=== PATIENT | female | born 1970 | race Caucasian/White ===

== ENCOUNTER 2016-09-10 22:53 | Emergency (ER) | payer OTHER ==
[~2016-09-10] VITALS: Ht 160 cm; Wt 127.0 kg
[~2016-09-10 22:53] MED LIST: ARIP30TA PO; CEPH-264 PO; CIPR500T PO; CYCL10TA2 PO; DOCU-27 PO; ERYT250T14 PO; FLUC150T PO; FLUO20CA16 PO; GABA-586 PO; HYDR-2762 PO; HYDR-971 PO; INSU100C4 SQ; INSU100I13 SQ; INSU100I17 SQ; INSU100V13 SQ; METO10TA PO; METO10TA81 PO; METR500T PO; NAPR250T2 PO; NAPR375T3 PO; NAPR500T PO; ONDA4TAB12 PO; OXYC-323 PO; OXYC1TAB7 PO; RANI150T6 PO; TAMS0.4C97 PO; TRAM50TA PO
--- NOTE | 2016-09-10 23:14 | PHYS DOC ---
Past Medical History Past Medical History: Depression, Diabetes-Type II, Kidney Stone Additional Past Medical Histor: obesity Past Surgical History: Cholecystectomy Additional Past Surgical Histo: kidney stones, right knee Alcohol Use: None Drug Use: None Adult General Chief Complaint Chief Complaint: FLANK PAIN HPI HPI Patient is a 46 year old female with a history significant for hypertension diabetes diverticulitis gastroparesis and a history of kidney stones in the past has required laser therapy presents here today complaining of right flank pain radiating to her right groin. Patient reports that she was here in the ED approximately 2 hours ago with her who is being treated for COPD exacerbation. While she was here she reports that she started experiencing some pain in her right flank. Patient went home took a bath and the pain started getting worse. Patient denies any fevers shakes chills vomiting or diarrhea. Patient reports she is nauseous with dysuria frequency and urgency. Patient does not advocate any hematuria. Patient has any chest pain or shortness of breath. Patient denies any weakness to her upper or lower extremities. Patient has any shortness of breath or cough. Patient denies any history of CAD, CHF, COPD, asthma,. Patient reports she's had her gallbladder taken out. Patient has not had her appendix taken out. Patient does not smoke drink or do drugs. Allergic to any medications. Patient's physical exam the ER is significant for tenderness to palpation her right flank and right lower quadrant. Patient has no rebound or guarding. Patient has normal active bowel sounds. Patient is morbidly obese. Patient is neurologically intact. Patient's and bleeding the ED without any difficulty. Patient is not exhibiting any signs or symptoms of be consistent with an acute surgical abdomen. ER course: Patient received IV fluids, Dilaudid, Zofran, and Toradol in the ED to assist with her discomfort. Patient's presentation appears to be consistent with a likely kidney stone however there still possibility that there may be an appendicitis. We will get a CT scan of the abdomen and pelvis to further sedate the cause of her pain. A UA is sent. patient will have baseline labs sent as well. Patient's CT scan of her urinary tract revealed no evidence of kidney stones, appendicitis, no acute pathology. patient's labs were all unremarkable except for a ua which revealed 20-40 wbcs and some rbc's in there as well. patient's symptoms may likely be secondary to a urinary tract infection. we will go ahead and start her on a dose of iv rocephin in the er and she'll be sent home with keflex, percocet, motrin to assist her with her pain. patient otherwise clinically and hemodynamically stable. i discussed the plan with the patient and her and they're in agreement with the current course of action. They will follow up with her primary care physician within the next 1-2 days for reevaluation. Review of Systems Review of Systems Constitutional: Denies fever or chills [] Eyes: Denies change in visual acuity, redness, or eye pain [] All other review systems are negative except as documented in the history of present illness. Current Medications Current Medications Current Medications Medications (Trade) Dose Ordered Sig/Олег Start Time Stop Time Status Last Admin Dose Admin Ceftriaxone Sodium (Rocephin 1gm Ivpb For Omni) 50 ml @ 100 mls/hr 1X ONCE 09/11/16 00:00 09/11/16 00:29 Hydromorphone HCl (Dilaudid) 1 mg 1X ONCE 09/10/16 23:30 09/10/16 23:31 DC 09/10/16 23:30 1 MG Ketorolac Tromethamine 15 mg 15 mg 1X ONCE 09/10/16 23:30 09/10/16 23:31 DC 09/10/16 23:30 15 MG Ondansetron HCl (Zofran) 4 mg 1X ONCE 09/10/16 23:30 09/10/16 23:31 DC 09/10/16 23:30 4 MG Sodium Chloride (Iv Sodium Chloride 0.9% 1000ml Bag) 1,000 ml @ 1,000 mls/hr Q1H 09/10/16 23:30 09/11/16 00:29 09/10/16 23:30 1,000 MLS/HR Allergies Allergies Allergies Coded Allergies Type Severity Reaction Last Updated Verified No Known Drug Allergies 03/25/15 No Physical Exam Physical Exam Constitutional: Well developed, well nourished, no acute distress, non-toxic appearance. [] HENT: Normocephalic, atraumatic, Eyes: , EOMI, conjunctiva normal, no discharge. [] Neck: Normal range of motion, no tenderness, Cardiovascular:Heart rate regular rhythm, Lungs & Thorax: Bilateral breath sounds clear to auscultation [] Abdomen: See above Skin: Warm, dry, no erythema, Back: Tenderness to palpation to right flank. See above Extremities: No tenderness, Neurologic: Alert and oriented X 3, Psychologic: Affect normal, judgement normal, mood normal. [] Current Patient Data Vital Signs Vital Signs Date Time Temp Pulse Resp B/P Pulse Ox O2 Delivery O2 Flow Rate FiO2 09/10/16 23:09 99.0 110 22 168/108 96 Room Air 99.0 Lab Values Laboratory Tests Test 09/10/16 22:20 09/10/16 23:00 09/10/16 23:20 POC Urine HCG, Qualitative Hcg negative (Negative) Urine Collection Type Unknown Urine Color Yellow Urine Clarity Clear Urine pH 5.5 Urine Specific [place] >=1.030 Urine Protein Negativemg/dL (NEG-TRACE) Urine Glucose (UA) >=1000mg/dL (NEG) Urine Ketones (Stick) Negativemg/dL (NEG) Urine Blood Large (NEG) Urine Nitrite Negative (NEG) Urine Bilirubin Negative (NEG) Urine Urobilinogen Dipstick 0.2mg/dL (0.2 mg/dL) Urine Leukocyte Esterase Small (NEG) Urine RBC 20-40/HPF (0-2) Urine WBC >40/HPF (0-4) Urine Squamous Epithelial Cells Mod/LPF Urine Bacteria Moderate/HPF (0-FEW) Urine Mucus Mod/LPF White Blood Count 13.3x10^3/uL (4.0-11.0) H Red Blood Count 5.01x10^6/uL (3.50-5.40) Hemoglobin 14.5g/dL (12.0-15.5) Hematocrit 43.7% (36.0-47.0) Mean Corpuscular Volume 87fL (79-100) Mean Corpuscular Hemoglobin 29pg (25-35) Mean Corpuscular Hemoglobin Concent 33g/dL (31-37) Red Cell Distribution Width 13.5% (11.5-14.5) Platelet Count 310x10^3/uL (140-400) Neutrophils (%) (Auto) 59% (31-73) Lymphocytes (%) (Auto) 31% (24-48) Monocytes (%) (Auto) 5% (0-9) Eosinophils (%) (Auto) 3% (0-3) Basophils (%) (Auto) 1% (0-3) Neutrophils # (Auto) 7.9x10^3uL (1.8-7.7) H Lymphocytes # (Auto) 4.1x10^3/uL (1.0-4.8) Monocytes # (Auto) 0.7x10^3/uL (0.0-1.1) Eosinophils # (Auto) 0.4x10^3/uL (0.0-0.7) Basophils # (Auto) 0.1x10^3/uL (0.0-0.2) Laboratory Tests 09/10/16 23:20 EKG EKG [] Radiology/Procedures Radiology/Procedures [] Course & Med Decision Making Course & Med Decision Making Pertinent Labs and Imaging studies reviewed. (See chart for details) [] Dragon Disclaimer Dragon Disclaimer This electronic medical record was generated, in whole or in part, using a voice recognition dictation system. Departure Departure Impression: Primary Impression: Abdominal pain Additional Impressions: Flank pain Urinary tract infection Disposition: 01 HOME, SELF-CARE Condition: IMPROVED Referrals: JENSEN ETIENNE MD (PCP) Patient Instructions: Flank Pain, Urinary Tract Infection Scripts Oxycodone/Apap 5-325 (Percocet 5-325 Mg Tablet)1 Each Tablet1 Tab PO Q6-8HRS PRN PAIN #20 TAB Prov:JESSICA HUTTON MD 09/10/16 Cephalexin (Keflex)500 Mg [id number] Mg PO QID 10 Days Prov:JESSICA HUTTON MD 09/10/16 Ibuprofen 600 Mg [id number] Mg PO PRN Q6HRS PRN PAIN #20 TAB Prov:JESSICA HUTTON MD 09/10/16 Problem Qualifiers JESSICA HUTTON MD Sep 10, 2016 23:14
[2016-09-10 23:25] LABS: BILIRUBIN,URINE NEGATIVE (NEG); GLUCOSE,URINE >=1000 mg/dL (NEG); NITRITE,URINE NEGATIVE (NEG); PH,URINE 5.5; PROTEIN,URINE NEGATIVE (NEG-TRACE); UROBILINOGEN,URINE 0.2 mg/dL (0.2 mg/dL)
[2016-09-10 23:26] LABS: BASO # 0.1 x10^3/uL (0.0-0.2); BASO % 1 % (0-3); EOS % 3 % (0-3); HEMATOCRIT 43.7 % (36.0-47.0); HEMOGLOBIN 14.5 g/dL (12.0-15.5); LYMPH # 4.1 x10^3/uL (1.0-4.8); LYMPH % 31 % (24-48); MEAN CORPUSCULAR HEMOGLOBIN 29 pg (25-35); MEAN CORPUSCULAR HGB CONC 33 g/dL (31-37); MEAN CORPUSCULAR VOLUME 87 fL (79-100); MONO % 5 % (0-9); NEUT % 59 % (31-73); PLATELET COUNT 310 x10^3/uL (140-400); RED BLOOD COUNT 5.01 x10^6/uL (3.50-5.40); RED CELL DISTRIBUTION WIDTH 13.5 % (11.5-14.5); WHITE BLOOD COUNT 13.3 x10^3/uL (4.0-11.0)
[2016-09-10] MEDS ORDERED: KETOROLAC 15 MG/ML VIAL. IV ONE (23:30)
[2016-09-10] MEDS ORDERED: HYDROMORPHONE 2 MG/ML VIAL. IV ONE (23:30)
[2016-09-10] MEDS ORDERED: IV NORMAL SALINE 1000ML BAG 1,000 ML IV SCH (23:30)
[2016-09-10] MEDS ORDERED: ONDANSETRON PF 4 MG/2 ML VIAL. IV ONE (23:30)
[2016-09-10 23:33] LABS: BACTERIA,URINE MODERATE /HPF (0-FEW); RBC,URINE 20-40 /HPF (0-2); SQUAMOUS EPITHELIAL CELL,UR MOD /LPF; WBC,URINE >40 /HPF (0-4)
--- NOTE | 2016-09-10 23:43 | RAD ---
CT abdomen and pelvis without contrast Indication: Right flank pain. Axial imaging through the abdomen and pelvis was performed without contrast. Comparison is made with prior CT from 01/11/2016. The lung bases are clear. The liver is unremarkable. No discrete liver mass is detected. The gallbladder is surgically absent. The pancreas and spleen are unremarkable. No adrenal mass is identified. The kidneys are unremarkable. No calculi are detected. No hydronephrosis is seen. Overall quality of the study is significantly compromised due to patient very large body habitus. This does produce a large amount of artifact. The uterus and bladder are unremarkable. No free fluid is seen. Appendix is unremarkable. There is no bowel obstruction or free air. Impression: Limited study due to patient's large body habitus. No acute feature is detected. Electronically signed by: Ahmet Morgan MD (Sep 10, 2016 23:40:59)
[2016-09-10] MEDS ORDERED: CEPH-264 PO (23:56)
[2016-09-10] MEDS ORDERED: IBUP-1007 PO (23:56)
[2016-09-10] MEDS ORDERED: OXYC-323 PO (23:56)
[2016-09-11] MEDS ORDERED: CEFTRIAXONE 1GM IVPB FOR OMNI 50 ML IV ONE
[2016-09-11 00:12] LABS: ALBUMIN 3.1 g/dL (3.4-5.0); ALBUMIN/GLOBULIN RATIO 0.7 (1.0-1.7); CREATININE 0.6 mg/dL (0.6-1.0); GFR 108.1; TOTAL BILIRUBIN 0.8 mg/dL (0.2-1.0); TOTAL PROTEIN 7.7 g/dL (6.4-8.2)
[2016-09-11] MEDS ORDERED: HYDROMORPHONE 2 MG/ML VIAL. IV ONE (00:30)
[2016-09-11 00:35] VITALS: BP 108/59
[2016-09-11 00:46] LABS: POTASSIUM 3.5 mmol/L (3.5-5.1)
[2016-09-11] MEDS ORDERED: METO10TA81 PO (16:27)
== END 2016-09-11 00:40 | disposition home or self-care (01) ==
LOC: ER 22:53
DX: N39.0 Urinary tract infection, site not specified (principal); I10 Essential (primary) hypertension; E11.9 Type 2 diabetes mellitus without complications; F32.9 Major depressive disorder, single episode, unspecified; E66.01 Morbid (severe) obesity due to excess calories; Z87.442 Personal history of urinary calculi; Z90.49 Acquired absence of other specified parts of digestive tract; Z68.42 Body mass index [BMI] 45.0-49.9, adult
CPT/HCPCS: 36415; 74176; 80053; 81001; 81025; 85027; 87086; 96365; 96375; 96376; 99285; J0690; J1170; J1885; J2405; J7030

== ENCOUNTER 2016-09-11 14:01 | Emergency (ER) | payer OTHER ==
[~2016-09-11] VITALS: Ht 160 cm; Wt 127.0 kg
[~2016-09-11 14:01] MED LIST changes: +IBUP-1007 PO
[2016-09-11 15:09] LABS: BASO # 0.1 x10^3/uL (0.0-0.2); BASO % 1 % (0-3); BILIRUBIN,URINE NEGATIVE (NEG); EOS % 4 % (0-3); GLUCOSE,URINE >=1000 mg/dL (NEG); HEMATOCRIT 42.4 % (36.0-47.0); LYMPH # 3.1 x10^3/uL (1.0-4.8); LYMPH % 30 % (24-48); MEAN CORPUSCULAR HEMOGLOBIN 29 pg (25-35); MEAN CORPUSCULAR HGB CONC 33 g/dL (31-37); MEAN CORPUSCULAR VOLUME 87 fL (79-100); MONO % 6 % (0-9); NEUT % 60 % (31-73); NITRITE,URINE NEGATIVE (NEG); PLATELET COUNT 298 x10^3/uL (140-400); PROTEIN,URINE NEGATIVE (NEG-TRACE); RED BLOOD COUNT 4.87 x10^6/uL (3.50-5.40); RED CELL DISTRIBUTION WIDTH 13.7 % (11.5-14.5); UROBILINOGEN,URINE 0.2 mg/dL (0.2 mg/dL); WHITE BLOOD COUNT 10.4 x10^3/uL (4.0-11.0)
[2016-09-11 15:14] LABS: BARBITURATES NEG (NEG); BENZODIAZEPINES NEG (NEG); CALCIUM 8.8 mg/dL (8.5-10.1); CANNABINOIDS NEG (NEG); COCAINE NEG (NEG); CREATININE 1.1 mg/dL (0.6-1.0); GFR 53.7; METHADONE NEG (NEG); OPIATES POS (NEG); PHENCYCLIDINE NEG (NEG); POTASSIUM 4.6 mmol/L (3.5-5.1)
[2016-09-11] MEDS ORDERED: IV NORMAL SALINE 1000ML BAG 1,000 ML IV SCH (15:15)
[2016-09-11] MEDS ORDERED: KETOROLAC TROMETHAMINE 30 MG/ML INJ. IV ONE (15:15)
[2016-09-11] MEDS ORDERED: HALOPERIDOL LACTATE 5 MG/ML VIAL. IVP ONE (15:15)
[2016-09-11 15:19] LABS: BACTERIA,URINE 0 /HPF (0-FEW); ETHANOL, URINE NEG (NEG); RBC,URINE TNTC /HPF (0-2); SQUAMOUS EPITHELIAL CELL,UR FEW /LPF
[2016-09-11 15:21] LABS: ALBUMIN/GLOBULIN RATIO 0.7 (1.0-1.7); TOTAL BILIRUBIN 0.5 mg/dL (0.2-1.0); TOTAL PROTEIN 7.2 g/dL (6.4-8.2)
[2016-09-11 16:02] VITALS: BP 116/65
[2016-09-11] MEDS ORDERED: DICYCLOMINE HCL 10 MG CAPSULE PO ONE (16:15)
[2016-09-11] MEDS ORDERED: METO10TA81 PO (16:27)
--- NOTE | 2016-09-11 16:39 | ED.ADGEN ---
Past Medical History Past Medical History: Depression, Diabetes-Type II, Diverticulitis, Kidney Stone Additional Past Medical Histor: obesity, GASTROPARESIS Past Surgical History: Cholecystectomy Additional Past Surgical Histo: kidney stones, right knee Alcohol Use: None Drug Use: None Adult General Chief Complaint Chief Complaint: FLANK PAIN HPI HPI Patient is a 46 year old woman, history of type 2 diabetes mellitus with gastroparesis, diverticulosis, obesity, renal calculi, who presents to the emergency department with complaint of persistent right-sided flank pain and hematuria. Patient was seen in the emergency department last night for these complaints, at that time she received a CT of the abdomen and pelvis, laboratory studies, which did not reveal any evidence of renal calculi or systemic infection, patient was given antibiotics and pain medication, and instructed to follow-up. Patient states that she has had 2 episodes of vomiting , one yesterday and one today, when she did try to eat. She states that she has not tried taking medication as she feels nauseous. She states that she believes that the symptoms she is experiencing are consistent with her gastroparesis. She states that she was evaluated previously and told that "I might need a tube ", last time that she was seen by her GI doctor. She cannot recall the name for GI physician. She denies any injuries, any fevers or chills, any weakness emesis or tingling, any chest pain or shortness of breath. Review of Systems Review of Systems Constitutional: Denies fever or chills. [] Eyes: Denies change in visual acuity. [] HENT: Denies nasal congestion or sore throat. [] Respiratory: Denies cough or shortness of breath. [] Cardiovascular: Denies chest pain or edema. [] GI: Abdominal and flank pain, throughout the right side, nausea and vomiting. No diarrhea. : Denies dysuria. [] Musculoskeletal: Denies back pain or joint pain. [] Integument: Denies rash. [] Neurologic: Denies headache, focal weakness or sensory changes. [] Endocrine: Denies polyuria or polydipsia. [] Lymphatic: Denies swollen glands. [] Psychiatric: Denies depression or anxiety. [] Current Medications Current Medications Current Medications Medications (Trade) Dose Ordered Sig/Олег Start Time Stop Time Status Last Admin Dose Admin Dicyclomine HCl (Bentyl) 10 mg 1X ONCE 09/11/16 16:15 09/11/16 16:16 DC 09/11/16 16:15 10 MG Haloperidol Lactate (Haldol) 5 mg 1X ONCE 09/11/16 15:15 09/11/16 15:16 DC 09/11/16 15:29 5 MG Ketorolac Tromethamine (Toradol) 10 mg 1X ONCE 09/11/16 15:15 09/11/16 15:16 DC 09/11/16 15:28 10 MG Sodium Chloride (Iv Sodium Chloride 0.9% 1000ml Bag) 1,000 ml @ 1,000 mls/hr Q1H 09/11/16 15:15 09/11/16 16:14 DC 09/11/16 15:29 1,000 MLS/HR Allergies Allergies Allergies Coded Allergies Type Severity Reaction Last Updated Verified No Known Drug Allergies 03/25/15 No Physical Exam Physical Exam Constitutional: Well developed, well nourished, no acute distress, non-toxic appearance. [] HENT: Normocephalic, atraumatic, bilateral external ears normal, oropharynx moist, no oral exudates, nose normal. [] Eyes: PERRLA, EOMI, conjunctiva normal, no discharge. [] Neck: Normal range of motion, no tenderness, supple, no stridor. [] Cardiovascular:Heart rate regular rhythm, no murmur [] Lungs & Thorax: Bilateral breath sounds clear to auscultation [] Abdomen: Bowel sounds normal, soft, no tenderness, no masses, no pulsatile masses. [] Skin: Warm, dry, no erythema, no rash. [] Back: No tenderness, no CVA tenderness. [] Extremities: No tenderness, no cyanosis, no clubbing, ROM intact, no edema. [] Neurologic: Alert and oriented X 3, normal motor function, normal sensory function, no focal deficits noted. [] Psychologic: Affect normal, judgement normal, mood normal. [] Current Patient Data Vital Signs Vital Signs Date Time Temp Pulse Resp B/P Pulse Ox O2 Delivery O2 Flow Rate FiO2 09/11/16 16:02 75 21 116/65 95 Room Air 09/11/16 15:00 98.2 98.2 Lab Values Laboratory Tests Test 09/11/16 14:50 White Blood Count 10.4x10^3/uL (4.0-11.0) Red Blood Count 4.87x10^6/uL (3.50-5.40) Hemoglobin 14.0g/dL (12.0-15.5) Hematocrit 42.4% (36.0-47.0) Mean Corpuscular Volume 87fL (79-100) Mean Corpuscular Hemoglobin 29pg (25-35) Mean Corpuscular Hemoglobin Concent 33g/dL (31-37) Red Cell Distribution Width 13.7% (11.5-14.5) Platelet Count 298x10^3/uL (140-400) Neutrophils (%) (Auto) 60% (31-73) Lymphocytes (%) (Auto) 30% (24-48) Monocytes (%) (Auto) 6% (0-9) Eosinophils (%) (Auto) 4% (0-3) H Basophils (%) (Auto) 1% (0-3) Neutrophils # (Auto) 6.2x10^3uL (1.8-7.7) Lymphocytes # (Auto) 3.1x10^3/uL (1.0-4.8) Monocytes # (Auto) 0.6x10^3/uL (0.0-1.1) Eosinophils # (Auto) 0.4x10^3/uL (0.0-0.7) Basophils # (Auto) 0.1x10^3/uL (0.0-0.2) Urine Collection Type Unknown Urine Color Yellow Urine Clarity Clear Urine pH 5.0 Urine Specific [place] 1.025 Urine Protein Negativemg/dL (NEG-TRACE) Urine Glucose (UA) >=1000mg/dL (NEG) Urine Ketones (Stick) Negativemg/dL (NEG) Urine Blood Large (NEG) Urine Nitrite Negative (NEG) Urine Bilirubin Negative (NEG) Urine Urobilinogen Dipstick 0.2mg/dL (0.2 mg/dL) Urine Leukocyte Esterase Negative (NEG) Urine RBC Tntc/HPF (0-2) Urine WBC 1-4/HPF (0-4) Urine Squamous Epithelial Cells Few/LPF Urine Bacteria 0/HPF (0-FEW) Sodium Level 138mmol/L (136-145) Potassium Level 4.6mmol/L (3.5-5.1) Chloride Level 101mmol/L (98-107) Carbon Dioxide Level 26mmol/L (21-32) Anion Gap 11 (6-14) Blood Urea Nitrogen 13mg/dL (7-20) Creatinine 1.1mg/dL (0.6-1.0) H Estimated GFR (Cockcroft-Gault) 53.7 BUN/Creatinine Ratio 12 (6-20) Glucose Level 348mg/dL (70-99) H Calcium Level 8.8mg/dL (8.5-10.1) Total Bilirubin 0.5mg/dL (0.2-1.0) Aspartate Amino Transferase (AST) 39U/L (15-37) H Alanine Aminotransferase (ALT) 44U/L (14-59) Alkaline Phosphatase 92U/L (46-116) Total Protein 7.2g/dL (6.4-8.2) Albumin 3.0g/dL (3.4-5.0) L Albumin/Globulin Ratio 0.7 (1.0-1.7) L Lipase 106U/L (73-393) Urine Opiates Screen Pos (NEG) Urine Methadone Screen Neg (NEG) Urine Barbiturates Neg (NEG) Urine Phencyclidine Screen Neg (NEG) Urine Amphetamine/Methamphetamine Neg (NEG) Urine Benzodiazepines Screen Neg (NEG) Urine Cocaine Screen Neg (NEG) Urine Cannabinoids Screen Neg (NEG) Urine Ethyl Alcohol Neg (NEG) Laboratory Tests 09/11/16 14:50 Laboratory Tests 09/11/16 14:50 Radiology/Procedures Radiology/Procedures Acute abdominal series: 3 view: Normal cardiopulmonary silhouette, supple and story effort, but no infiltrates or effusion identified, no pneumothorax, no free air. Patient with stool and bowel gas throughout. No evidence of obstruction. As interpreted by me. Course & Med Decision Making Course & Med Decision Making Pertinent Labs and Imaging studies reviewed. (See chart for details) Patient received IV fluids, Haldol, and and Toradol for her complaint of possible gastroparesis. No further vomiting in the emergency department. Patient 's last episode of emesis was this morning. Laboratory studies were performed. No concerning findings were identified aside from hyperglycemia of 348, no evidence of acidosis. Patient's obstruction series not reveal any acutely concerning findings. I did discuss with the patient, she states that she is still experiencing pain, and would like to know the cause. I discussed with her that there was no evidence of stone or other concerning finding her CT performed less than 24 hours ago, and her imaging today does not reveal anything concerning, in order for laboratory studies. She has had no vomiting in the ED. She stated that she was willing to try oral fluids, and oral medication. She was given Bentyl by mouth, along with fluids orally, which she tolerated without issue. I did speak with her primary care provider, Dr. Corrales, although patient is continuing to complain of pain, she has been evaluated for similar symptoms previously, and I have not identified any acutely concerning findings today in the emergency department. As patient is tolerating oral medications and fluids, I believe that she is stable to follow-up as an outpatient with GI for additional evaluation. Dr. Corrales concurs with this plan. I did discuss this with the patient, who stated "if you're not going to do anything for me then I would just like to go". I discussed with the patient and her at bedside that she had been evaluated with several imaging modalities, laboratory studies, and we had not identified a concerning cause for her symptoms, and that follow-up with a GI physician would be appropriate. Patient instructed to follow-up with Dr. Corrales tomorrow, for referral to GI, she was given a prescription of Reglan, to use with her other medications, and clear and detailed return instructions. Patient discharged home in stable condition with plan as above. Dragon Disclaimer Dragon Disclaimer This electronic medical record was generated, in whole or in part, using a voice recognition dictation system. Departure Impression: Primary Impression: Flank pain Additional Impression: Abdominal pain Disposition: 01 HOME, SELF-CARE Condition: IMPROVED Scripts Metoclopramide Hcl (Reglan)10 Mg Tablet1 Tab PO QID PRN NAUSEA #12 TAB Please take one tablet by mouth up to once every 6-8 hours as needed for nausea. Prov:HUSSAIN SIMPSON DO 09/11/16 Problem Qualifiers HUSSAIN SIMPSON DO Sep 11, 2016 16:39
--- NOTE | 2016-09-11 17:16 | RAD ---
ACUTE ABDOMEN SERIES Clinical Indication: Abd pain Comparison: June 30, 2015 Technique: Frontal view of the chest and upright and supine views of the abdomen are obtained. Findings: No focal consolidation, pleural effusion or pneumothorax is seen. Cardiomediastinal silhouette is within normal limits of size. No dilated bowel loops are seen to suggest obstruction. No free air seen on the upright view. Formed fecal material seen throughout the colon. Post cholecystectomy clips in the right upper quadrant. Visualized osseous structures and surrounding soft tissues demonstrate no acute finding. IMPRESSION: No radiographic evidence of an acute cardio pulmonary process. Nonobstructive appearing bowel gas pattern.
--- NOTE | 2016-09-11 17:26 | EKG ---
[facility] [address] [place] [address] Test Date: 2016-09-11 Test Time: 15:37:26 Pat Name: GARRY ONEAL Department: Room: Gender: Female Program Analyst: : 1970 Requested By: HUSSAIN SIMPSON Order Number: [id number] Reading MD: Mariya Purcell Measurements Intervals [place] Rate: 75 P: 46 UT: 164 QRS: 12 QRSD: 76 T: 34 QT: 364 QTc: 409 Interpretive Statements SINUS RHYTHM NORMAL ECG Electronically Signed On 09-14-2016 10:07:45 CDT by Mariya Purcell
== END 2016-09-11 16:47 | disposition home or self-care (01) ==
LOC: ER 14:01
DX: R10.9 Unspecified abdominal pain (principal); R31.9 Hematuria, unspecified; R11.10 Vomiting, unspecified; E11.43 Type 2 diabetes mellitus with diabetic autonomic (poly)neuropathy; E66.9 Obesity, unspecified; F32.9 Major depressive disorder, single episode, unspecified; Z87.442 Personal history of urinary calculi; Z90.49 Acquired absence of other specified parts of digestive tract; Z68.42 Body mass index [BMI] 45.0-49.9, adult
CPT/HCPCS: 36415; 74022; 80053; 80305; 81001; 83690; 85027; 93005; 96361; 96374; 96375; 99285; J1630; J1885; J7030; G0481

== ENCOUNTER → 2016-09-30 | Outpatient (CLI) | payer OTHER, BC ==
[2016-09-11 16:02] VITALS: BP 116/65
--- NOTE | 2016-09-30 15:42 | RAD ---
DATE: 09/30/2016 EXAM: DIGITAL SCREEN BILAT W/CAD HISTORY: Screening. Note is made of a positive family history for breast malignancy COMPARISON: None. This is a baseline exam This study was interpreted with the benefit of Computerized Aided Detection (CAD ). FINDINGS: Breast Density: The breast parenchyma is primarily fatty replaced. Breast parenchyma level density A.. The right breast is unremarkable. There are tiny nodules probably reflecting intramammary lymph nodes in the upper outer right breast. There is a benign- appearing calcification in the right breast. In the left breast there is a well- defined oval 12 mm nodule at approximately the 4:00 position of the left breast. There are 2 tiny well-defined nodules immediately adjacent to the larger nodule. A benign-appearing coaxial or or retention cyst is additionally noted at the 12:00 position of the left breast. IMPRESSION: Well-defined 12 mm nodule in the left breast with 2 smaller nodules immediately adjacent to same. Targeted ultrasound advised. BI-RADS CATEGORY: 0 INCOMPLETE: NEED ADDITIONAL IMAGING EVAULATION AND/OR PRIOR MAMMOGRAMS FOR COMPARISON RECOMMENDED FOLLOW-UP: ADD ADDITIONAL IMAGING PQRS compliance statement: Patient information was entered into a reminder system with a target due date soon for the next mammogram. Mammography is a sensitive method for finding small breast cancers, but it does not detect them all and is not a substitute for careful clinical examination. A negative mammogram does not negate a clinically suspicious finding and should not result in delay in biopsying a clinically suspicious abnormality. "Our facility is accredited by the [employer] Mammography Program." CHENGD
== END | disposition home or self-care (01) ==
LOC: MAMMO 14:03
PROVIDERS: ATTEND Family Medicine
DX: Z12.31 Encounter for screening mammogram for malignant neoplasm of breast (principal)
CPT/HCPCS: G0202; 77067

== ENCOUNTER → 2016-10-05 | Outpatient (CLI) | payer OTHER, BC ==
[2016-09-11 16:02] VITALS: BP 116/65
--- NOTE | 2016-10-05 15:31 | RAD ---
Exam performed: Left breast ultrasound. History: Abnormal screening mammogram. Date of service: 10/05/16. Comparison: Bilateral screening mammogram from 09/30/16. Discussion: Targeted sonographic evaluation of the left breast is performed between 11 and 12:00 position and between 2 and 6:00 position. There is a well-defined cyst measuring 0.9 x 1.1 cm 11:00 position, 8 cm from the nipple demonstrating good through transmission. This corresponds to a partially calcified abnormality deep in the right breast at 12:00 position. There is a solid isoechoic round mass measuring 1.3 x 1.2 x 1.0 cm at 5:00 position, 7 cm from the nipple. No internal vascularity is identified. There are several fibrocystic changes superficially at 12:00 position with several isolated dilated ducts. Impression: Solid iso to hypoechoic round mass measuring 1.3 x 1.2 x 1.0 cm 5:00 position, 7 cm of the nipple. This is suspicious. Patient has a strong family history of breast cancer and an ultrasound-guided right breast biopsy is recommended. Detail with the patient. Dr. Elida Corrales's office was called and a message was left on her voicemail. Benign cyst at 11:00 position. BI-RADS Category 4: suspicious. Mammography is the most sensitive method for finding small breast cancers, but it does not detect them all and is not a substitute for careful clinical examination. A negative mammogram does not negate a clinically suspicious finding and should not result in delay in biopsying a clinically suspicious abnormality. "Our facility is accredited by the [employer] Mammography Program."
== END | disposition home or self-care (01) ==
LOC: US 14:34
PROVIDERS: ATTEND Family Medicine
DX: R92.8 Other abnormal and inconclusive findings on diagnostic imaging of breast (principal)
CPT/HCPCS: 76641

== ENCOUNTER → 2016-10-13 | Outpatient (CLI) | payer BC, OTHER ==
[~2016-10-13] VITALS: Ht 157.5 cm; Wt 127.0 kg
[~2016-10-13] MED LIST changes: +BUPR1PAT2 TP; +CLON1TAB PO; +LIDOCAINE 1%/EPI 1:100,000 20 ML VIAL. INJ ONE; +LISI10TA2 PO; +MELO-150 PO
[2016-10-13 09:58] VITALS: BP 109/67
--- NOTE | 2016-10-17 08:49 | PATHOLOGY ---
PATHOLOGY REPORT * * * * * * * * FINAL DIAGNOSIS: Breast mass, left, core needle biopsy: - Fibroadenoma. - Cystic apocrine metaplasia, focal. (Please see comment) COMMENT: This case has also been reviewed by Miguel Monreal M.D., who agrees with the diagnosis. REPORT ELECTRONICALLY SIGNED BY: Domingo Nolasco M.D. DATE/TIME: 10/17/2016 08:48 * * * * * * * * GROSS PATHOLOGY: Received in formalin labeled "Garry Oneal," and additionally labeled on the requisition as "left breast mass," are multiple needle cores of yellow-bedoya fibrofatty tissue measuring 2.3 x 1.6 x 0.3 cm in aggregate dimensions. The tissue is submitted in its entirety in cassette A1. The cold ischemic time is 5 minutes. The total formalin fixation time is 10 hours and 51 minutes. (KAH; 10/13/2016) INITIAL CPT CODE(S): A; 02884 Professional services performed by [employer], [facility] [place] [address]. Technical services performed by [employer], [address] [place] [address], [address] [address]. SPECIMEN(S) RECEIVED: A.Left breast mass CLINICAL HISTORY: Left breast mass PATIENT: GARRY ONEAL /AGE: 4 1970 (Age: 46) PATIENT #: [id number] ALT CASE #: SPECIMEN COLLECTION DATE: 10/13/2016 SPECIMEN RECEIVED DATE: 10/13/2016 [employer] - [facility] [place] [address] - PHONE: [phone] * * * END OF REPORT * * *
--- NOTE | 2016-10-17 14:04 | RAD ---
Ultrasound-guided vacuum-assisted left breast biopsy, 10/13/2016: History: Suspicious breast nodule Previous studies demonstrated a suspicious nodule at the 5:00 location in the left breast. Under local anesthesia, aseptic conditions and sonographic guidance the [employer] biopsy instrument was passed into this nodule via a lateral approach. Multiple 12-gauge vacuum-assisted core samples were obtained. The samples were sent to pathology for evaluation. A biopsy marker was deposited at the biopsy site. The biopsy instrument was then removed and hemostasis obtained. Two-view postprocedural mammograms were then obtained to document position of the biopsy marker which lies along the inferomedial margin of the biopsied nodule. The patient tolerated the procedure well and left the department in good condition. The subsequent pathology report indicated the presence of a fibroadenoma, as well as cystic apocrine metaplasia. The findings are considered to be concordant.
== END | disposition home or self-care (01) ==
LOC: US 16:31
PROVIDERS: ATTEND Family Medicine
DX: N63 Unspecified lump in breast (principal)
CPT/HCPCS: 19081; 76942; C1713; G0206; 77065

== ENCOUNTER → 2017-11-07 | Outpatient (CLI) | payer BC | END | disposition home or self-care (01) | LOC: RAD 14:00 | DX: M17.0 Bilateral primary osteoarthritis of knee (principal) | CPT/HCPCS: 73562 ==

== ENCOUNTER 2019-02-20 07:35 | Emergency (ER) | payer SELFPAY ==
[~2019-02-20] VITALS: Ht 160 cm; Wt 127.0 kg
[~2019-02-20 07:35] MED LIST changes: -ARIP30TA PO; +ARIP30TA4 PO; -BUPR1PAT2 TP; +BUPR1PAT8 TP; +DOCU-109 PO; -DOCU-27 PO; -GABA-586 PO; +GABA300C18 PO; -HYDR-2762 PO; +HYDR-2765 PO; +HYDR-3164 PO; -HYDR-971 PO; -LIDOCAINE 1%/EPI 1:100,000 20 ML VIAL. INJ ONE; -MELO-150 PO; +MELO15TA23 PO; +NAPR-683 PO; +NAPR-695 PO; -NAPR250T2 PO; +NAPR250T6 PO; -NAPR375T3 PO; -NAPR500T PO; -OXYC-323 PO; +OXYC1TAB15 PO; +RANI-376 PO; -RANI150T6 PO
[2019-02-20] MEDS ORDERED: IV NORMAL SALINE 1000ML BAG 1,000 ML IV SCH (07:55)
--- NOTE | 2019-02-20 08:04 | PHYS DOC ---
Past Medical History Past Medical History: Depression, Diabetes-Type II, Diverticulitis, Kidney Stone Additional Past Medical Histor: obesity, GASTROPARESIS, chronic pain Past Surgical History: Cholecystectomy Additional Past Surgical Histo: kidney stones, right knee Alcohol Use: None Drug Use: None Adult General Chief Complaint Chief Complaint: FLANK PAIN HPI HPI Patient is a 48-year-old female, with a history of diabetes, gastroparesis, prior renal stones, and chronic pain, currently on 60 mg of oxycodone per day, according to her [employer] report, as well as a history of anxiety, currently on Xanax 1 mg 3 times a day, who presents to the emergency department for evaluation of right flank pain. She states the pain began about 8:00 this morning, located in her right flank area, without radiation. There are no alleviating or exacerbating factors to her symptoms. The patient states that she has been "sick her stomach" for the past several days, but has not had any vomiting or diarrhea. She denies any urinary symptoms. She denies any chest pain shortness of breath. Review of Systems Review of Systems Constitutional: Denies fever or chills [] Eyes: Denies change in visual acuity, redness, or eye pain [] HENT: Denies nasal congestion or sore throat [] Respiratory: Denies cough or shortness of breath [] Cardiovascular: The patient denies any shortness of breath, chest pain, palpitations, or orthopnea [] GI: Denies abdominal pain, vomiting, bloody stools or diarrhea [] : Denies dysuria or hematuria [] Musculoskeletal: Denies back pain or joint pain [] Integument: Denies rash or skin lesions [] Neurologic: Denies headache, focal weakness or sensory changes [] Endocrine: Denies polyuria or polydipsia [] All other systems were reviewed and found to be within normal limits, except as documented in this note. Current Medications Current Medications Current Medications Medications (Trade) Dose Ordered Sig/Олег Start Time Stop Time Status Last Admin Dose Admin Diphenhydramine HCl (Benadryl) 12.5 mg 1X ONCE 02/20/19 08:30 02/20/19 08:31 DC 02/20/19 08:35 12.5 MG Insulin Human Regular (HumuLIN R VIAL) 5 unit 1X ONCE 02/20/19 09:15 02/20/19 09:16 DC Ketorolac Tromethamine (Toradol 30mg Vial) 30 mg 1X ONCE 02/20/19 08:30 02/20/19 08:31 DC 02/20/19 08:35 30 MG Lorazepam (Ativan Inj) 1 mg 1X ONCE 02/20/19 08:30 02/20/19 08:31 DC 02/20/19 08:35 1 MG Prochlorperazine Edisylate (Compazine) 10 mg 1X ONCE 02/20/19 08:30 02/20/19 08:31 DC 02/20/19 08:35 10 MG Sodium Chloride 1,000 ml @ 1,000 mls/hr Q1H 02/20/19 07:55 02/20/19 08:54 DC 02/20/19 08:35 1,000 MLS/HR Allergies Allergies Allergies Coded Allergies Type Severity Reaction Last Updated Verified No Known Drug Allergies 03/25/15 No Physical Exam Physical Exam PHYSICAL EXAM: CONSTITUTIONAL: Well developed, well nourished HEAD: normocephalic, atraumatic EENT: PERRL, EOMI. Conjunctivae normal color, sclerae non-icteric; moist mucous membranes. NECK: Supple, non-tender; no meningismus. LUNGS: Lungs CTA, breathing even and unlabored. Normal air movement. HEART: Regular rate and rhythm, no murmur CHEST: No deformity; non-tender ABDOMEN: The abdomen is soft, and non-tender, no masses or bruits. There is moderate tenderness to palpation in the right flank/right lower costal margin area, without any skin lesions noted to the area. The abdomen itself is relatively soft and nontender. Normal bowel sounds are present. EXTREM: Normal ROM; no deformity, no calf tenderness. Normal pulses palpable in all extremities. There is no pedal edema. SKIN: No rash; no diaphoresis NEURO: Alert; normal speech and cognition; CN's grossly intact; strength grossly intact without focal deficit. BACK: No CVA TTP.There is no bony tenderness to palpation of the thoracic or lumbar spine. PSYCHIATRIC: Moderately anxious affect. Current Patient Data Vital Signs Vital Signs Date Time Temp Pulse Resp B/P (MAP) Pulse Ox O2 Delivery O2 Flow Rate FiO2 02/20/19 07:40 98.8 74 22 166/80 (108) 97 Room Air 98.8 Lab Values Laboratory Tests Test 02/20/19 07:41 02/20/19 08:27 Urine Collection Type Unknown Urine Color Yellow Urine Clarity Clear Urine pH 5.5 Urine Specific [place] >=1.030 Urine Protein Negative mg/dL (NEG-TRACE) Urine Glucose (UA) >=1000 mg/dL (NEG) Urine Ketones (Stick) Negative mg/dL (NEG) Urine Blood Moderate (NEG) Urine Nitrite Negative (NEG) Urine Bilirubin Negative (NEG) Urine Urobilinogen Dipstick 1.0 mg/dL (0.2 mg/dL) Urine Leukocyte Esterase Small (NEG) Urine RBC 6-10 /HPF (0-2) Urine WBC 20-40 /HPF (0-4) Urine Squamous Epithelial Cells Many /LPF Urine Bacteria Few /HPF (0-FEW) Urine Test Negative (NEG) White Blood Count 13.4 x10^3/uL (4.0-11.0) H Red Blood Count 4.50 x10^6/uL (3.50-5.40) Hemoglobin 12.6 g/dL (12.0-15.5) Hematocrit 37.9 % (36.0-47.0) Mean Corpuscular Volume 84 fL (79-100) Mean Corpuscular Hemoglobin 28 pg (25-35) Mean Corpuscular Hemoglobin Concent 33 g/dL (31-37) Red Cell Distribution Width 14.4 % (11.5-14.5) Platelet Count 305 x10^3/uL (140-400) Neutrophils (%) (Auto) 79 % (31-73) H Lymphocytes (%) (Auto) 14 % (24-48) L Monocytes (%) (Auto) 6 % (0-9) Eosinophils (%) (Auto) 1 % (0-3) Basophils (%) (Auto) 1 % (0-3) Neutrophils # (Auto) 10.6 x10^3/uL (1.8-7.7) H Lymphocytes # (Auto) 1.9 x10^3/uL (1.0-4.8) Monocytes # (Auto) 0.8 x10^3/uL (0.0-1.1) Eosinophils # (Auto) 0.1 x10^3/uL (0.0-0.7) Basophils # (Auto) 0.1 x10^3/uL (0.0-0.2) Sodium Level 136 mmol/L (136-145) Potassium Level 4.2 mmol/L (3.5-5.1) Chloride Level 102 mmol/L (98-107) Carbon Dioxide Level 23 mmol/L (21-32) Anion Gap 11 (6-14) Blood Urea Nitrogen 9 mg/dL (7-20) Creatinine 1.1 mg/dL (0.6-1.0) H Estimated GFR (Cockcroft-Gault) 53.2 BUN/Creatinine Ratio 8 (6-20) Glucose Level 327 mg/dL (70-99) H Calcium Level 9.8 mg/dL (8.5-10.1) Total Bilirubin 0.7 mg/dL (0.2-1.0) Aspartate Amino Transferase (AST) 35 U/L (15-37) Alanine Aminotransferase (ALT) 26 U/L (14-59) Alkaline Phosphatase 148 U/L (46-116) H Total Protein 7.7 g/dL (6.4-8.2) Albumin 2.9 g/dL (3.4-5.0) L Albumin/Globulin Ratio 0.6 (1.0-1.7) L Lipase 59 U/L (73-393) L Laboratory Tests 02/20/19 08:27 Laboratory Tests 02/20/19 08:27 EKG EKG [] Radiology/Procedures Radiology/Procedures [PROCEDURE: CT ABDOMEN PELVIS WO CONTRAST CT Abdomen and Pelvis without contrast History: Right flank pain Technique: Noncontrast CT imaging was performed of the abdomen and pelvis. Multiplanar images are reviewed. Exposure: One or more of the following individualized dose reduction techniques were utilized for this examination: 1. Automated exposure control 2. Adjustment of the mA and/or kV according to patient size 3. Use of iterative reconstruction technique. Comparison: September 10, 2016 Findings: There is some motion degradation. There is some beam attenuation by soft tissues. There is now hazy and strandy change of right perinephric fat. There is very mild right hydronephrosis. There is also some strandy change about the right ureter, ureter difficult to visualize in its entirety. There is questionable punctate calculus in the proximal right ureter as seen on coronal image 48 series 4 although not entirely certain. There is no renal calculus on either side. Mild density of the lung bases bilaterally is likely component of atelectasis. There is diffuse hepatic steatosis. Right lobe liver is enlarged about 24 cm longitudinal. There has been cholecystectomy. There is no significant adrenal nodularity. Accurate evaluation of abdominal visceral organs is limited without intravenous contrast, no obvious focal abnormality of pancreas or spleen. Accurate evaluation of bowel is limited without oral contrast, no bowel dilatation or free air. Appendix is not clearly identified if still present. There is colonic diverticulosis greatest of sigmoid colon without significant adjacent inflammatory-type change. There is small fat-containing umbilical hernia, no internal bowel. There is multilevel lumbar facet degenerative change. Impression: 1. There is strandy and hazy inflammatory type change of the right perinephric fat and about the right ureter. Right pyelonephritis is possible, consideration of sequela of mild forniceal rupture related to obstruction. There is very mild right hydronephrosis. There is questionable punctate calculus in the proximal right ureter although not entirely certain if true finding. 2. There is hepatic steatosis and hepatomegaly. 3. There is colonic diverticulosis. ] Course & Med Decision Making Course & Med Decision Making Pertinent Labs and Imaging studies reviewed. (See chart for details) [] Patient condition remains stable. I discussed test results in detail with the patient, the need for close follow-up both with her PCP and urology, and return precautions. She is much more comfortable at this time, and appears to be feeling better. She reports improved pain control with administered medications. Dragon Disclaimer Dragon Disclaimer This electronic medical record was generated, in whole or in part, using a voice recognition dictation system. Departure Departure Impression: Primary Impression: Flank pain Additional Impression: Pyelonephritis Disposition: 01 HOME, SELF-CARE Condition: STABLE Referrals: JENSEN ETIENNE MD (PCP) Patient Instructions: Pyelonephritis, Adult, Urinary Tract Infection Additional Instructions: Ibuprofen 400-600 mg every 6 hours may help improve your symptoms. Continue taking your previously prescribed pain medications. Scripts Sulfamethoxazole/Trimethoprim (BACTRIM DS TABLET) 1 Each Tablet 1 TAB PO BID, #14 TAB Prov: NAY REYNOLDS MD 02/20/19 Problem Qualifiers NAY REYNOLDS MD Feb 20, 2019 08:04
[2019-02-20 08:12] LABS: U PREG PATIENT NEGATIVE (NEG)
[2019-02-20 08:17] LABS: BILIRUBIN,URINE NEGATIVE (NEG); CLARITY,URINE CLEAR; COLOR,URINE YELLOW; NITRITE,URINE NEGATIVE (NEG); PH,URINE 5.5; PROTEIN,URINE NEGATIVE (NEG-TRACE)
[2019-02-20] MEDS ORDERED: diphenhydrAMINE 50 MG/ML VIAL IVP ONE (08:30)
[2019-02-20] MEDS ORDERED: KETOROLAC 30 MG/ML VIAL. IV ONE (08:30)
[2019-02-20] MEDS ORDERED: PROCHLORPERAZINE 10 MG/2 ML VIAL. IV ONE (08:30)
[2019-02-20 08:37] LABS: BASO # 0.1 x10^3/uL (0.0-0.2); BASO % 1 % (0-3); EOS # 0.1 x10^3/uL (0.0-0.7); EOS % 1 % (0-3); HEMATOCRIT 37.9 % (36.0-47.0); HEMOGLOBIN 12.6 g/dL (12.0-15.5); LYMPH # 1.9 x10^3/uL (1.0-4.8); LYMPH % 14 % (24-48); MEAN CORPUSCULAR HEMOGLOBIN 28 pg (25-35); MEAN CORPUSCULAR HGB CONC 33 g/dL (31-37); MEAN CORPUSCULAR VOLUME 84 fL (79-100); MONO # 0.8 x10^3/uL (0.0-1.1); MONO % 6 % (0-9); NEUT # 10.6 x10^3/uL (1.8-7.7); NEUT % 79 % (31-73); PLATELET COUNT 305 x10^3/uL (140-400); RED CELL DISTRIBUTION WIDTH 14.4 % (11.5-14.5); WHITE BLOOD COUNT 13.4 x10^3/uL (4.0-11.0)
[2019-02-20 08:38] LABS: BACTERIA,URINE FEW /HPF (0-FEW); SQUAMOUS EPITHELIAL CELL,UR MANY /LPF; WBC,URINE 20-40 /HPF (0-4)
[2019-02-20 08:46] LABS: CALCIUM 9.8 mg/dL (8.5-10.1); CREATININE 1.1 mg/dL (0.6-1.0); GFR 53.2; POTASSIUM 4.2 mmol/L (3.5-5.1)
[2019-02-20 08:53] LABS: ALBUMIN 2.9 g/dL (3.4-5.0); ALBUMIN/GLOBULIN RATIO 0.6 (1.0-1.7); TOTAL BILIRUBIN 0.7 mg/dL (0.2-1.0); TOTAL PROTEIN 7.7 g/dL (6.4-8.2)
[2019-02-20] MEDS ORDERED: INSULIN REGULAR 100 UNIT/ML 3ML VIAL. IV ONE (09:15)
--- NOTE | 2019-02-20 09:40 | RAD ---
CT Abdomen and Pelvis without contrast History: Right flank pain Technique: Noncontrast CT imaging was performed of the abdomen and pelvis. Multiplanar images are reviewed. Exposure: One or more of the following individualized dose reduction techniques were utilized for this examination: 1. Automated exposure control 2. Adjustment of the mA and/or kV according to patient size 3. Use of iterative reconstruction technique. Comparison: September 10, 2016 Findings: There is some motion degradation. There is some beam attenuation by soft tissues. There is now hazy and strandy change of right perinephric fat. There is very mild right hydronephrosis. There is also some strandy change about the right ureter, ureter difficult to visualize in its entirety. There is questionable punctate calculus in the proximal right ureter as seen on coronal image 48 series 4 although not entirely certain. There is no renal calculus on either side. Mild density of the lung bases bilaterally is likely component of atelectasis. There is diffuse hepatic steatosis. Right lobe liver is enlarged about 24 cm longitudinal. There has been cholecystectomy. There is no significant adrenal nodularity. Accurate evaluation of abdominal visceral organs is limited without intravenous contrast, no obvious focal abnormality of pancreas or spleen. Accurate evaluation of bowel is limited without oral contrast, no bowel dilatation or free air. Appendix is not clearly identified if still present. There is colonic diverticulosis greatest of sigmoid colon without significant adjacent inflammatory-type change. There is small fat-containing umbilical hernia, no internal bowel. There is multilevel lumbar facet degenerative change. Impression: 1. There is strandy and hazy inflammatory type change of the right perinephric fat and about the right ureter. Right pyelonephritis is possible, consideration of sequela of mild forniceal rupture related to obstruction. There is very mild right hydronephrosis. There is questionable punctate calculus in the proximal right ureter although not entirely certain if true finding. 2. There is hepatic steatosis and hepatomegaly. 3. There is colonic diverticulosis. Electronically signed by: Esa Wong MD (02/20/2019 9:37 AM) [id number]
[2019-02-20] MEDS ORDERED: cefTRIAXone IV Push 1 GM VIAL. IVP ONE (09:45)
[2019-02-20] MEDS ORDERED: SULF1TAB24 PO (09:49)
[2019-02-20] MEDS ORDERED: INSULIN REGULAR 100 UNIT/ML 3ML VIAL. SQ ONE (10:15)
[2019-02-20] MEDS ORDERED: cefTRIAXone IM 1 GM VIAL IM ONE (10:15)
[2019-02-20 10:43] VITALS: BP 144/64
== END 2019-02-20 10:44 | disposition home or self-care (01) ==
LOC: ER 07:35
DX: N13.6 Pyonephrosis (principal); E11.9 Type 2 diabetes mellitus without complications; G89.29 Other chronic pain; F32.9 Major depressive disorder, single episode, unspecified; E66.9 Obesity, unspecified; Z68.42 Body mass index [BMI] 45.0-49.9, adult; Z90.49 Acquired absence of other specified parts of digestive tract; Z87.442 Personal history of urinary calculi
CPT/HCPCS: 36415; 74176; 80053; 81001; 81025; 83690; 85025; 87086; 96372; 96374; 96375; 99285; J0696; J0780; J1200; J1815; J1885; J2060; J7030

== ENCOUNTER → 2020-12-15 | Outpatient (CLI) | payer OTHER ==
[~2020-12-15] MED LIST changes: -CIPR500T PO; +CIPR500T2 PO; +LISI10TA16 PO; -LISI10TA2 PO; +NAPR-699 PO; -NAPR250T6 PO; +SULF1TAB24 PO
--- NOTE | 2020-12-16 13:20 | RAD ---
XR [email or web address] 1-2 VIEWS 12/16/2020 12:48 PM Indication: Right knee pain Comparison: Right knee radiographs November 07, 2017 Technique: 2 views of the right knee Findings: No acute fracture or dislocation. Mild medial compartment joint space narrowing. No knee joint effusi on. Tiny ossific fragment posterior to the fibular head was present on the prior study, possibly due to remote trauma. Impression: No acute osseous abnormality. Electronically signed by: Stephen Freire (12/16/2020 1:18 PM) [id number]
== END ==
LOC: RAD 14:10
PROVIDERS: ATTEND Family Medicine
DX: Z02.71 Encounter for disability determination (principal); M25.861 Other specified joint disorders, right knee
CPT/HCPCS: 73560